=== PATIENT | male | born 1950 | race Caucasian/White ===

== ENCOUNTER → 2020-07-29 | Day surgery (SDC) | payer MEDICARE ==
[2020-07-24 12:06] LABS: BASOPHILS % 0.5 % (0.0-1.0); EOSINOPHILS # (AUTO) 0.1 (0.0-0.4); EOSINOPHILS % 2.1 % (0.0-6.0); HEMATOCRIT 37.4 % (34.2-44.1); HEMOGLOBIN 12.8 g/dL (12.0-16.0); LYMPHOCYTES # (AUTO) 1.3 (1.0-3.2); LYMPHOCYTES % 22.4 % (18.0-39.1); MEAN CORPUSCULAR HEMOGLOBIN 30.8 pg (28-32); MEAN CORPUSCULAR HGB CONC 34.2 g/dL (31-35); MEAN CORPUSCULAR VOLUME 89.9 fL (81-99); MONOCYTES # (AUTO) 0.7 (0.2-0.8); MONOCYTES % 11.7 % (4.4-11.3); NEUTROPHILS # (AUTO) 3.5 (2.1-6.9); NEUTROPHILS % 62.8 % (38.7-80.0); PLATELET COUNT 156 x10e3/uL (140-360); RED BLOOD COUNT 4.16 x10e6/uL (3.6-5.1); RED CELL DISTRIBUTION WIDTH 12.6 % (11.7-14.4)
[2020-07-24 12:20] LABS: INR 0.99; PROTHROMBIN TIME 13.6 seconds (11.9-14.5)
[2020-07-24 12:24] LABS: ALBUMIN 4.4 g/dL (3.5-5.0); ALBUMIN/GLOBULIN RATIO 1.4 (0.8-2.0); ANION GAP 12.7 mmol/L (8-16); CALCIUM 9.4 mg/dL (8.4-10.2); CREATININE, SERUM 1.11 mg/dL (0.57-1.11); POTASSIUM 3.7 mmol/L (3.5-5.1)
[2020-07-29] VITALS (10 sets, daily range): BP systolic 116–156; BP diastolic 57–80
[~2020-07-29] VITALS: Ht 188 cm; Wt 104.3 kg
[~2020-07-29] MED LIST: ALIGN4 MG PO; ASPIRIN EC81 MG PO; ATORVASTATIN CA10 MG PO; COQ-10100 MG PO; DOXAZOSIN MESYLA4 MG PO; FENTANYL CITRATE/PF 100MCG/2 ML INJ ONE; GABAPENTIN300 MG PO; GARLIPURE600 MG PO; HEPARIN SOD (PORCINE) 1000 UNIT/ML 30ML ONE; HEPARIN SOD/SOD CHLORIDE 2,000 ML ONE; IOPAMIDOL 370 MG/ML 200 ML INFUS..BTL INJ ONE; LANSOPRAZOLE30 MG PO; LIDOCAINE HCL 2% LOCAL 20 ML VIAL ONE; LOSARTAN-HCTZ1 EAC2 PO; MIDAZOLAM HCL 2 MG/2 ML VIAL ONE; MULTI-VITAMIN1 EACH PO; MYRBETRIQ50 MG PO; NITROGLYCERIN/D5W 200 MCG/ML 0 ML ONE; SODIUM CHLORIDE 0.9% 1000ML 1,000 ML ONE; VERAPAMIL HCL 2.5 MG/ML 2 ML VIAL ONE; VITAMIN C1000 MG PO; ZINC SULFATE220 MG PO; vitamin d3 PO
== END | disposition home or self-care (01) ==
LOC: CATH LAB 10:26
PROVIDERS: ATTEND Internal Medicine Cardiovascular Disease
DX: I25.10 Atherosclerotic heart disease of native coronary artery without angina pectoris (principal); R94.39 Abnormal result of other cardiovascular function study; I10 Essential (primary) hypertension; Z01.812 Encounter for preprocedural laboratory examination; Z20.828 Contact with and (suspected) exposure to other viral communicable diseases; Z79.82 Long term (current) use of aspirin; Z82.49 Family history of ischemic heart disease and other diseases of the circulatory system
CPT/HCPCS: 36415; 80053; 85025; 85610; 93458; C1760; C1769; J2001; J2250; J3010; J7030; Q9967; U0002; 99152; J1644

== ENCOUNTER 2024-02-23 05:27 | Observation (INO) | payer MEDICARE ==
[2024-02-21 15:21] LABS: BASOPHILS % 0.5 % (0.0-1.0); EOSINOPHILS # (AUTO) 0.2 (0.0-0.4); EOSINOPHILS % 2.7 % (0.0-6.0); HEMATOCRIT 33.8 % (38.2-49.6); HEMOGLOBIN 11.5 g/dL (14.0-18.0); LYMPHOCYTES # (AUTO) 1.4 (1.0-3.2); LYMPHOCYTES % 21.3 % (18.0-39.1); MEAN CORPUSCULAR HEMOGLOBIN 31.2 pg (28-32); MEAN CORPUSCULAR VOLUME 91.6 fL (81-99); MONOCYTES # (AUTO) 0.7 (0.2-0.8); MONOCYTES % 11.7 % (4.4-11.3); NEUTROPHILS % 63.5 % (38.7-80.0); PLATELET COUNT 154 x10e3/uL (140-360); RED BLOOD COUNT 3.69 x10e6/uL (4.3-5.7); RED CELL DISTRIBUTION WIDTH 12.6 % (11.7-14.4); WHITE BLOOD COUNT 6.34 x10e3/uL (4.8-10.8)
[2024-02-21 15:43] LABS: ANION GAP 13.1 mmol/L (8-16); CALCIUM 9.7 mg/dL (8.4-10.2); CREATININE, SERUM 1.39 mg/dL (0.72-1.25); POTASSIUM 4.1 mmol/L (3.5-5.1)
[2024-02-21 15:49] LABS: INR 0.96; PROTHROMBIN TIME 13.5 seconds (11.9-14.5)
[2024-02-21 15:50] LABS: PARTIAL THROMBOPLASTIN TIME 33.1 seconds (23.8-35.5)
[~2024-02-23] VITALS: Ht 195.6 cm; Wt 107.0 kg
[2024-02-23] VITALS (10 sets, daily range): BP systolic 117–175; BP diastolic 69–75; PULSE 59–71; RESP 16–18; TEMP 97.6–99.6; O2SAT 96–99
[~2024-02-23 05:27] MED LIST changes: -FENTANYL CITRATE/PF 100MCG/2 ML INJ ONE; -HEPARIN SOD (PORCINE) 1000 UNIT/ML 30ML ONE; -HEPARIN SOD/SOD CHLORIDE 2,000 ML ONE; -IOPAMIDOL 370 MG/ML 200 ML INFUS..BTL INJ ONE; -LIDOCAINE HCL 2% LOCAL 20 ML VIAL ONE; -MIDAZOLAM HCL 2 MG/2 ML VIAL ONE; -NITROGLYCERIN/D5W 200 MCG/ML 0 ML ONE; +QUNOL MEGA COQ100 MG PO; -SODIUM CHLORIDE 0.9% 1000ML 1,000 ML ONE; -VERAPAMIL HCL 2.5 MG/ML 2 ML VIAL ONE
[2024-02-23] MEDS: LACTATED RINGER'S 1,000 ML ONE (05:50)
[2024-02-23] MEDS: CEFAZOLIN SODIUM 2 GM ONE (05:50)
[2024-02-23] MEDS ORDERED: LIDOCAINE 1% W/EPINEPHRINE 20 ML VIAL ONE (07:02)
[2024-02-23] MEDS ORDERED: Vancomycin IV 1 GM VIAL ONE (07:03)
[2024-02-23] MEDS ORDERED: THROMBIN FOR SOLN 5,000 UNIT VIAL ONE (07:03)
[2024-02-23] MEDS ORDERED: FENTANYL CITRATE/PF 100MCG/2 ML INJ ONE (09:57)
[2024-02-23] MEDS ORDERED: PROMETHAZINE HCL (IM) 25 MG/ML VIAL IM PRN (10:00)
[2024-02-23] MEDS ORDERED: ZOLPIDEM TARTRATE 5 MG TAB PO PRN (10:00)
[2024-02-23] MEDS ORDERED: CARISOPRODOL 350 MG TAB PO PRN (10:00)
[2024-02-23] MEDS ORDERED: MAGNESIUM/ALUMINUM/SIMETHICONE 30 ML UDC PO PRN (10:00)
[2024-02-23] MEDS ORDERED: ACETAMINOPHEN 325 MG TAB PO PRN (10:00)
[2024-02-23] MEDS ORDERED: HYDROMORPHONE 2MG/ML IV PRN (10:00)
[2024-02-23] MEDS ORDERED: MORPHINE SULFATE 5 MG/ML VIAL IM PRN (10:00)
[2024-02-23] MEDS ORDERED: CEPACOL SORE THROAT LOZENGES PO PRN (10:00)
[2024-02-23] MEDS ORDERED: OXYCODONE/ACETAMINOPHEN 5-325 1 EACH TABLET PO PRN (10:00)
[2024-02-23] MEDS ORDERED: ONDANSETRON HCL INJ 2MG/ML 2ML 2 MG/ML VIAL IV PRN (10:00)
[2024-02-23] MEDS ORDERED: HYDROCODON-ACE1 EA12 PO (10:02)
[2024-02-23] MEDS ORDERED: ONDANSETRON HCL INJ 2MG/ML 2ML 2 MG/ML VIAL ONE (10:45)
[2024-02-23] MEDS ORDERED: SUGAMMADEX SODIUM 200 MG/2 ML VIAL IV ONE (10:45)
[2024-02-23] MEDS ORDERED: EPHEDRINE SULFATE INJ 50 MG/ML VIAL ONE (10:45)
[2024-02-23] MEDS ORDERED: LIDOCAINE HCL 2% LOCAL INJ 5 ML SDV VIAL INJ ONE (10:45)
[2024-02-23] MEDS ORDERED: ROCURONIUM BROMIDE 10 MG/ML 5ML VIAL IV ONE (10:45)
[2024-02-23] MEDS ORDERED: DEXMEDETOMIDINE HCL 200 MCG/2 ML VIAL ONE (10:45)
[2024-02-23] MEDS ORDERED: LIDOCAINE HCL (LTA) 4 ML SOLN ONE (10:45)
[2024-02-23] MEDS ORDERED: ACETAMINOPHEN 1000 MG/100 ML IV ONE (10:45)
[2024-02-23] MEDS ORDERED: DEXAMETHASONE SOD PHOS 10 MG/1 ML VIAL ONE (10:45)
[2024-02-23] MEDS ORDERED: PROPOFOL IV EMULSION 10 MG/ML 20 ML VIAL ONE (10:45)
[2024-02-23] MEDS ORDERED: SEVOFLURANE INHAL SOLN 250 ML PEN BTL ONE (10:45)
[2024-02-23] MEDS: LACTATED RINGER'S 1,000 ML IV SCH (11:17)
[2024-02-23] MEDS: GABAPENTIN 300 MG CAP PO SCH (16:38)
[2024-02-23] MEDS: DOXAZOSIN MESYLATE 2 MG TAB PO SCH (21:00)
[2024-02-24 04:00] VITALS: BP 136/69; PULSE 66; RESP 18; TEMP 97.8; O2SAT 98
[2024-02-24 08:51] VITALS: BP 120/70; PULSE 61; RESP 16; TEMP 97.8; O2SAT 96
[2024-02-24 09:00] VITALS: BP 120/70; PULSE 61; RESP 16; TEMP 97.8; O2SAT 96
[2024-02-24] MEDS: NON-FORMULARY MEDICATION (Mirabegron (Myrbetriq) 50 MG) PO SCH (09:00)
[2024-02-24 09:13] VITALS: BP 120/63
[2024-02-24] MEDS: MULTIVITAMINS/MINERALS TAB PO SCH (09:13)
[2024-02-24] MEDS: PANTOPRAZOLE SOD 40 MG TABEC PO SCH (09:13)
[2024-02-24] MEDS: LOSARTAN POTASSIUM 100 MG TAB PO SCH (09:13)
[2024-02-24] MEDS: ASCORBIC ACID 500 MG TAB PO SCH (09:14)
[2024-02-24] MEDS: HYDROCHLOROTHIAZIDE 25 MG TAB PO SCH (09:14)
[2024-02-24] MEDS ORDERED: ATORVASTATIN 10 MG TAB PO SCH (21:00)
== END 2024-02-24 10:19 | disposition home or self-care (01) ==
LOC: OR 05:27 → PACU V 10:01 → MED/SURG2 10:42
PROVIDERS: ADMIT Neurological Surgery; ATTEND Neurological Surgery
DX: M47.22 Other spondylosis with radiculopathy, cervical region (principal); M50.123 Cervical disc disorder at C6-C7 level with radiculopathy; M48.02 Spinal stenosis, cervical region; I10 Essential (primary) hypertension; R00.1 Bradycardia, unspecified; E78.5 Hyperlipidemia, unspecified; K21.9 Gastro-esophageal reflux disease without esophagitis; E66.9 Obesity, unspecified; Z68.29 Body mass index [BMI] 29.0-29.9, adult; Z01.810 Encounter for preprocedural cardiovascular examination; Z85.46 Personal history of malignant neoplasm of prostate; Z01.812 Encounter for preprocedural laboratory examination; Z01.818 Encounter for other preprocedural examination; Z79.899 Other long term (current) drug therapy
CPT/HCPCS: 20931; 22551; 22845; 36415; 71046; 72040; 76000; 80048; 85025; 85610; 85730; 86850; 86900; 88304; 88311; 93005; 99252; G0378 ×2; J0131; J0690 ×2; J1100; J2001; J2405; J2704; J3010; J3370; J7121; S0164